=== PATIENT | male | born 1975 | race Two or more races ===

== ENCOUNTER 2023-10-18 11:42 | Emergency (ER) | payer SELFPAY ==
[~2023-10-18] VITALS: Ht 170.2 cm; Wt 65.9 kg
[2023-10-18 11:46] VITALS: TEMP 97.7
[2023-10-18 15:10] VITALS: BP 146/79; PULSE 73; RESP 16
[2023-10-18] MEDS ORDERED: IBUP-1492 PO (15:24)
== END 2023-10-18 15:32 | disposition home or self-care (01) ==
LOC: EMS 11:42
DX: S76.911A Strain of unspecified muscles, fascia and tendons at thigh level, right thigh, initial encounter (principal); X58.XXXA Exposure to other specified factors, initial encounter; Y93.89 Activity, other specified; Y92.89 Other specified places as the place of occurrence of the external cause; Y99.8 Other external cause status
CPT/HCPCS: 29505; 99284; 73562-TC; 73600-TC; Z7502

== ENCOUNTER 2024-11-17 13:28 | Emergency (ER) | payer OTHER ==
[~2024-11-17] VITALS: Ht 177.8 cm; Wt 68.2 kg
[~2024-11-17 13:28] MED LIST: IBUP-1492 PO
[2024-11-17 13:41] VITALS: BP 142/71; PULSE 64; RESP 18; TEMP 98; O2SAT 99
[2024-11-17 14:29] LABS: APPEARANCE,URINE CLEAR (CLEAR); BILIRUBIN,URINE NEGATIVE (NEGATIVE); COLOR,URINE COLORLESS (YELLOW); GLUCOSE, URINE (UA) NEGATIVE (NEGATIVE); KETONES,URINE NEGATIVE (NEGATIVE); LEUKOCYTE ESTERASE ,URINE LARGE (NEGATIVE); NITRATE,URINE NEGATIVE (NEGATIVE); OCCULT BLOOD,URINE NEGATIVE (NEGATIVE); PH,URINE 6.5 (5.0-8.0); PROTEIN,URINE NEGATIVE (NEGATIVE); SPECIFIC GRAVITIY, URINE 1.004 (1.003-1.030); UROBILINOGEN,URINE <=1.0 mg/dL (<=1.0)
[2024-11-17 14:41] LABS: RBC,URINE None Seen /HPF (0-2); WBC,URINE 51-100 /HPF (0-5)
[2024-11-17 14:42] LABS: BACTERIA,URINE Few /HPF (None Seen); SQUAMOUS EPITHELIAL CELL,UR Few /LPF (None Seen)
[2024-11-17] MEDS ORDERED: DOXY-354 PO (16:17)
[2024-11-17] MEDS: DOXYCYCLINE HYCLATE 100 MG TABLET PO ONE (16:44)
[2024-11-17] MEDS: CefTRIAXone SODIUM 1 GM/VIAL IM ONE (16:45)
[2024-11-17] MEDS: AZITHROMYCIN 500 MG TABLET PO ONE (16:45)
[2024-11-17] MEDS: LIDOCAINE/PF 1% 2 ML VIAL IM ONE (16:45)
== END 2024-11-17 16:55 | disposition home or self-care (01) ==
LOC: EMS 13:28
DX: N34.2 Other urethritis (principal); Z79.899 Other long term (current) drug therapy
CPT/HCPCS: 99283; 81001; 87086; 96372; J0456; J0696; J3490